=== PATIENT | female | born 1985 | race Caucasian/White ===

== ENCOUNTER → 2021-03-04 12:40 | Outpatient (CLI) | payer OTHER, MEDICAID, SELFPAY ==
--- NOTE | 2021-03-04 12:47 | DI.US.S_ITS ---
PROCEDURE: US PELVIC COMPLETE INDICATIONS: PAIN; HX OVARIAN CYSTS TECHNIQUE: Real-time scanning was performed of the pelvic organs, with image documentation. Additional endovaginal scanning was necessary due to incomplete visualization of the adnexal and endometrial structures by transabdominal scanning. COMPARISON: None. FINDINGS: Uterus: Uterus is normal in size at 2.7 x 4.0 x 5.2 cm. The endometrium measures 2.5 mm in combined thickness. Centrally positioned IUD. Ovaries: Normal ovaries bilaterally. Other: No pathologic free abdominal or pelvic fluid. IMPRESSION: Normal examination with centrally positioned IUD. Dictated by: Rachid Deshpande M.D. on 03/04/2021 at 16:31 Approved by: Rachid Deshpande M.D. on 03/04/2021 at 16:33
== END ==
PROVIDERS: PCP Family Medicine; Referring Provider Obstetrics & Gynecology; Visit Provider Obstetrics & Gynecology
DX: R10.2 Pelvic and perineal pain (principal); Z87.42 Personal history of other diseases of the female genital tract; Z97.5 Presence of (intrauterine) contraceptive device
CPT/HCPCS: 76830; 76856

== ENCOUNTER → 2021-03-19 13:40 | Outpatient (CLI) | payer OTHER, MEDICAID, SELFPAY ==
--- NOTE | 2021-03-19 13:41 | DI.MRI.S_ITS ---
PROCEDURE: MR PELVIS WO/W CON INDICATIONS: Pelvic pain, LLQ pain, left sciatica TECHNIQUE: Coronal HASTE, sagittal breath-hold T2 FSE; axial T1 FSE with and without fat saturation through the pelvis. Optional long- and short-axis uterine nonbreath-hold T2 FSE through the uterus. Sagittal or axial dynamic VIBE during administration of contrast. Post-contrast axial or coronal VIBE/2-D FLASH with fat saturation from the iliac crests to the symphysis. Optional diffusion weighted imaging and ADC may be performed. COMPARISON: None. FINDINGS: Image quality: Excellent. Uterus: Uterus is retroverted and normal in size. There is an IUD present seated in appropriate position. No evidence of serosal perforation. No suspicious myometrial mass. Probable scar is seen in the lower uterine segment anteriorly. Endometrium is normal in thickness. Junctional zone is normal in thickness at 12 mm or less. Adnexa: Both ovaries were not well seen, however there are no dominant masses in either adnexa. Urinary system: Urinary bladder is decompressed. Bladder wall is normal in thickness. Distal ureters are non distended. Urethra appears normal in morphology. Nodes and vessels: No pelvic or inguinal adenopathy by size criteria. Iliac vessels are normal in size. The sciatic nerves are symmetric and normal in signal. Bowel and peritoneum: No pathologic free pelvic fluid. Inferior colon and small bowel loops are normal in caliber. Soft tissues: No inguinal hernias. No findings of pelvic floor incompetence in the absence of provocation. Bones: Marrow demonstrates normal overall signal. Normal vertebral body height loss and disc spacing. Sacroiliac joints appear normal. IMPRESSION: 1. Retroverted uterus with an appropriately positioned IUD. 2. No other abnormalities visible. Dictated by: Vilma Cat M.D. on 03/19/2021 at 15:26 Approved by: Vilma Cat M.D. on 03/19/2021 at 17:11
== END ==
PROVIDERS: PCP Family Medicine; Referring Provider Obstetrics & Gynecology; Visit Provider Obstetrics & Gynecology
DX: M54.32 Sciatica, left side (principal); R10.2 Pelvic and perineal pain; R10.32 Left lower quadrant pain; G89.29 Other chronic pain; N85.4 Malposition of uterus; Z97.5 Presence of (intrauterine) contraceptive device
CPT/HCPCS: 72197

== ENCOUNTER → 2024-08-02 12:02 | Outpatient (CLI) | payer BC, SELFPAY ==
--- NOTE | 2024-08-02 12:04 | DI.US.S_ITS ---
PROCEDURE: US PELVIC COMPLETE INDICATIONS: pelvic pain TECHNIQUE: Real-time scanning was performed of the pelvic organs, with image documentation. Additional endovaginal scanning was necessary due to incomplete visualization of the adnexal and endometrial structures by transabdominal scanning. COMPARISON: [facility], , US PELVIC COMPLETE, 03/04/2021, 12:57. FINDINGS: Uterus: Uterus is dextroverted and normal in size at 6.9 x 4.4 x 3.1 cm. The myometrium is homogeneous. No discrete ower fibroids. The endometrium measures 2.1 mm combined thickness. Intrauterine device is noted in fundal endometrium. No discrete endometrial mass or fluid. Ovaries: The right ovary measures 2.8 x 2.3 x 0.9 cm, with a calculated ovarian volume of 3 cc. The left ovary measures 4.0 x 5.2 x 2.5 cm, with a calculated ovarian volume of 27 cc. Less than 12 follicles can be seen in each ovary. Complex cyst with internal thin septations are noted in left ovary measures 3.4 x 3.8 x 2.1 cm in size. No internal vascularity. No adnexal masses are seen. Other: No pathologic free abdominal or pelvic fluid. IMPRESSION: 1. Complex appearing cyst in left ovary measures 3.8 cm in size. Follow-up ultrasound study in 4-6 weeks is recommended. Normal appearing right ovary. 2. No discrete uterine fibroids. No endometrial mass or fluid. Intrauterine device is noted in its normal position. We strive to produce accurate, complete, and clear reports of imaging services. To assist us in improving patient care, this report was composed using standard report templates and voice recognition software. Therefore, it may contain abnormal punctuation, insertions and/or omissions. Occasional wrong-word or sound-alike substitutions may occur. Though we review the report and make efforts to correct it, we do recommend that the report be read carefully in proper context to recognize any text inaccuracies. Dictated by: Brent Burk M.D. on 08/02/2024 at 21:44 Approved by: Brent Burk M.D. on 08/02/2024 at 21:47
== END ==
PROVIDERS: PCP Family Medicine; Referring Provider Obstetrics & Gynecology; Visit Provider Obstetrics & Gynecology
DX: N92.6 Irregular menstruation, unspecified (principal); N83.292 Other ovarian cyst, left side
CPT/HCPCS: 76830; 76856; 93975

== ENCOUNTER 2024-09-15 06:28 | Day surgery (SDC) | payer OTHER, SELFPAY ==
[2024-08-12 13:16] VITALS: BMI 21.1
[2024-09-15 06:51] VITALS: BP 113/75; PULSE 99; RESP 16; TEMP 36.9; O2SAT 100; BMI 21.1
--- NOTE | 2024-09-15 07:35 | PM.PREOP ---
Pre-operative Note COVID-19 COVID-19 status: Not tested Interval Note History & Physical reviewed/Exam performed by Physician: Yes Changes to H&P: No
[2024-09-15 09:04] VITALS: BP 100/63; PULSE 92; RESP 12; TEMP 37.1; O2SAT 100
--- NOTE | 2024-09-15 09:08 | PM.GYNOP.1 ---
Operative Date/Time/Diagnoses Date of procedure: 09/15/24 Time of procedure: 08:10 Pre-op diagnosis: Left ovarian cyst Chronic pelvic pain History of endometriosis Post-op diagnosis: same Procedure & Clinicians Procedure: Procedures Operation Date: 09/15/24 07:45 Actual Procedure Side Surgeon p Laparoscopy, Diagnostic, SHIRT OPERATOR Raghu Ivey MD Indications: Joselyn returns today for follow-up and discussion about results from her recent pelvic ultrasound. Patient has a long history of symptoms consistent with endometriosis and underwent 8 months of Lupron Depo treatment with excellent effect. She continues to take daily norethindrone and has a Mirena IUD in place. She has however started having cyclic nausea and vomiting which she believes correlates with with what would be her menstrual cycles. Pelvic ultrasound obtained 08/02/2024 shows: FINDINGS: Uterus: Uterus is dextroverted and normal in size at 6.9 x 4.4 x 3.1 cm. The myometrium is homogeneous. No discrete ower fibroids. The endometrium measures 2.1 mm combined thickness. Intrauterine device is noted in fundal endometrium. No discrete endometrial mass or fluid. Ovaries: The right ovary measures 2.8 x 2.3 x 0.9 cm, with a calculated ovarian volume of 3 cc. The left ovary measures 4.0 x 5.2 x 2.5 cm, with a calculated ovarian volume of 27 cc. Less than 12 follicles can be seen in each ovary. Complex cyst with internal thin septations are noted in left ovary measures 3.4 x 3.8 x 2.1 cm in size. No internal vascularity. No adnexal masses are seen. Other: No pathologic free abdominal or pelvic fluid. IMPRESSION: 1. Complex appearing cyst in left ovary measures 3.8 cm in size. Follow-up ultrasound study in 4-6 weeks is recommended. Normal appearing right ovary. 2. No discrete uterine fibroids. No endometrial mass or fluid. Intrauterine device is noted in its normal position. We had an extended discussion regarding her presumptive history of endometriosis and the cyclic vomiting but she is now experiencing. In the presence of a significant abnormality of the left ovary, patient would like to proceed with laparoscopic evaluation with plans for left ovarian cystectomy, possible left oophorectomy, and possible excision/fulguration of pelvic endometriosis. She is admitted today for her scheduled surgery. Surgeon: Raghu Ivey Anesthesia Type: General Operative Notes Findings: Essentially normal pelvis. There is no evidence of active endometriosis in the pelvis but rather some old scarring of the peritoneal surfaces which may act residual scarring from endometriosis previously treated with Lupron Depot. The left ovary is normal in appearance and there was no evidence of a cyst within the ovary itself. A corpus luteum cyst is noted in the right ovary. Both fallopian tubes appeared to be normal. Both ureters are freely peristalsing. No abnormality seen in the anterior cul-de-sac. Aside from some scarring mentioned previously, there were no abnormalities in the posterior cul-de-sac. Both ovarian fossae are free of scarring or endometriosis but are quite deep. The appendix is visually normal. Liver edges and gallbladder are also normal to laparoscopic evaluation. Closure Type: primary Specimen(s): none Estimated blood loss (mL): 5 Blood products transfused: none Procedure in detail: With the patient under satisfactory general anesthesia in the modified dorsal lithotomy position, the perineum, vagina, and abdomen were prepped and draped for IUD removal and laparoscopic bilateral salpingectomy. A pre-surgical safety time-out was then taken in accordance with [facility] OR protocols. The umbilicus was then infiltrated with 0.5% Marcaine with epinephrine and 2 cm vertical incision was made in the inferior aspect of the umbilicus. The fascia was identified and grasped with 2 Paramjit clamps. A transverse incision of the fascia was then made in stay sutures of 0 Vicryl placed at either end. A 12 mm Kiran cannula was then introduced through the incision into the abdominal cavity. Visual confirmation of correct placement performed with laparoscopic visualization. The abdomen was then insufflated with carbon dioxide and once appropriately insufflated, A 5 mm laparoscopic port was placed in the right and left mid quadrants after infiltration the skin and subcutaneous tissues with 0.5% Marcaine with epinephrine. Using a 3 puncture technique, the abdomen and pelvis were visualized with the findings as noted above with photographic documentation of all findings. Absent any abnormalities, the pneumoperitoneum was then vented and the ports removed from the abdominal wall. Port incisions were then closed with 4-0 Monocryl using inverted interrupted stitches and skin glue was applied. Appropriate dressings were then applied, patient was awakened, and transferred to the PACU for a period of observation after having tolerated the procedure well. Complications: none Post-operative Condition: stable Disposition: PACU Plan for aftercare: Routine postoperative care with follow-up planned for 2 weeks postop
[2024-09-15 09:13] VITALS: BP 90/53; PULSE 84; RESP 15; TEMP 37; O2SAT 100
[2024-09-15 09:21] VITALS: BP 98/59; PULSE 76; RESP 15; TEMP 37; O2SAT 99
[2024-09-15 09:30] VITALS: BP 105/65; PULSE 80; RESP 15; TEMP 36.9; O2SAT 98
== END 2024-09-15 10:02 | disposition home or self-care (01) ==
PROVIDERS: PCP Family Medicine; Referring Provider Obstetrics & Gynecology; Visit Provider Obstetrics & Gynecology
PROC: (CPT 49320; principal; 2024-09-15 07:45)
DX: R10.2 Pelvic and perineal pain (principal); Z30.432 Encounter for removal of intrauterine contraceptive device; N83.11 Corpus luteum cyst of right ovary
CPT/HCPCS: 49320; J1100; J1885; J2250; J2405; J2704; J3010; J3490